=== PATIENT | female | born 1955 | race African-American/Black ===

== ENCOUNTER 2016-07-23 11:44 | Emergency (ER) | payer OTHER ==
[2016-07-23 12:53] VITALS: TEMP 97.9; BMI 29.1
--- NOTE | 2016-07-23 14:06 | EDPRACDOC ---
- General Information Chief Complaint: Flu-Like Symptoms Stated Complaint: FLU LIKE SYMPTOMS Time Seen by Provider: 07/23/16 13:42 Information Source: Patient Mode Of Arrival: Car Home Medications: Home Medications Benzonatate [Tessalon] 200 mg PO TID #20 per 08/08/15 CloNIDine (Antihypertensive) [Catapres] 0.1 mg PO .DAILY W/LUNCH 08/08/15 Garlic 1 each PO DAILY 08/08/15 Metoprolol Tartrate [Lopressor] 25 mg PO BID 08/08/15 Ubidecarenone [Co Q-10] 200 mg PO DAILY 08/08/15 Ibuprofen Tablet [Motrin] 800 mg PO TID #10 tab 08/20/15 Ondansetron [Zofran Odt] 4 mg PO TID PRN #14 tab.rapdis 08/20/15 Oseltamivir Phosphate [Tamiflu] 75 mg PO BID #10 capsule 08/20/15 Acetaminophen with Codeine [TYLENOL WITH CODEINE; [employer] with Codeine] 5 ml PO Q4-6H PRN #120 ml 07/23/16 Cefdinir 300 mg PO BID #20 capsule 07/23/16 Loratadine [Claritin] 10 mg PO DAILY #30 tab 07/23/16 Prednisone [Deltasone, Orasone] 2 tabs PO DAILY #20 tab 07/23/16 Allergies/Adverse Reactions: Allergies Allergy/AdvReac Type Severity Reaction Status Date / Time rosuvastatin calcium Allergy See Verified 08/20/15 18:44 [From [place]] Comments GENERAL ANETHESIA Allergy See Uncoded 08/20/15 18:44 Comments - History of Present Illness Onset: 2 weeks HPI: PT PRESENTS TODAY WITH 2 WEEKS OF URI SYMPTOMS INCLUDING NASAL CONGESTION, COUGH , HOLLINS, FATIGUE. DENIES DIZZINESS, EAR PAIN, CP, SHOB, ABD PAIN, N/V/D. STATES WAS SEEN BY PCP INITIALLY AND GIVEN "SOME KIND OF ANTIBIOTIC" W/OUT RELIEF. NO APPARENT DISTRESS. NO PERTINENT PMH/MEDS. Current Symptoms: Reports: Cough, Fever (LAST NIGHT, SINCE RESOLVED), Headache, Nasal Symptoms, Other (FATIGUE) Shortness of Breath: None Cough: Reports: Productive, Yellow Rhinorrhea: Reports: Green Ear Symptoms: Reports: None Fever Severity/Quality: Reports: subjective Oral Intake: Normal Urinary Output: Normal Relevant History of: None Associated Signs & Symptoms:: Reports: Cough, Fever, Headache, Nasal Symptoms ED Past Medical History - History Reviewed Yes Nurses notes reviewed and agree except as marked - Patient Medical History Cardiac History: Reports: Hypertension - Social Medical History Smoking Status: Never smoker EDM Review of Systems - Review of Systems ROS Negative Except as Marked: Yes All systems reviewed and were negative except as marked Constitutional: Fatigue Eyes: No Symptoms Reported Ears: No Symptoms Reported Throat: No Symptoms Reported Nose: Congestion Respiratory: Cough Cardiovascular: No Symptoms Reported Gastrointestinal: No Symptoms Reported Neurological: No Symptoms Reported Musculoskeletal: No Symptoms Reported Integumentary: No Symptoms Reported - Physical Exam Constitutional: Alert (Awake), No apparent distress Oriented to: Time, Person, Place Last recorded Vital Signs: Last Vital Signs Temp 97.9 F 07/23/16 12:52 Pulse 70 07/23/16 12:52 Resp 18 07/23/16 12:52 BP 167/79 07/23/16 12:52 Pulse Ox 99 07/23/16 12:52 Oxygen Pulse Oxygen Saturation 99 O2 Device Oxygen Flow Rate Fraction of Inspired Oxygen ( FIO2) - HEENT Head: Normal Eye Exam: Normal Oropharynx: Normal Tympanic Membrane: Normal ENT EAC: Normal Nose: Congestion Neck: Normal, Denies Pain, Midline - Respiratory/Cardiovascular Respiratory: Normal - CTA Cardiovascular: Normal - GI Auscultation: Normal Palpation: Normal Tenderness: Non tender - Musculoskeletal Back: Normal Extremities: Normal - Integumentary Skin: Normal Lymphatics: Normal - Neurologic Cerebellar: Normal Mood Description: Normal Thought: Coherent Perception: Normal - Additional Information PT REQUESTS CXR. Decision Time to Discharge: 14:04 - Departure Disposition: Home Condition: Good Final Diagnosis: Acute upper respiratory infection Instructions: Upper Respiratory Infection (ED) Education/Counseling Given To: Patient Education/Counseling Given Regarding: Diagnosis, Treatment, Follow Up Referrals: None,No Provider [Primary Care Provider] - One Week LISA NICHOLSON [NonStaff] - One Week Prescriptions: New Acetaminophen with Codeine [TYLENOL WITH CODEINE; [employer] with Codeine] 5 ml PO Q4-6H PRN #120 ml PRN Reason: Pain Cefdinir 300 mg PO BID #20 capsule Prednisone [Deltasone, Orasone] 2 tabs PO DAILY #20 tab Loratadine [Claritin] 10 mg PO DAILY #30 tab No Action Ubidecarenone [Co Q-10] 200 mg PO DAILY Garlic 1 each PO DAILY CloNIDine (Antihypertensive) [Catapres] 0.1 mg PO .DAILY W/LUNCH Metoprolol Tartrate [Lopressor] 25 mg PO BID Benzonatate [Tessalon] 200 mg PO TID #20 per Ibuprofen Tablet [Motrin] 800 mg PO TID #10 tab Oseltamivir Phosphate [Tamiflu] 75 mg PO BID #10 capsule Ondansetron [Zofran Odt] 4 mg PO TID PRN #14 tab.rapdis PRN Reason: Nausea/Vomiting Additional Instructions: AFRIN FOR ADDITIONAL RELIEF OF NASAL CONGESTION. IF SYMPTOMS PERSIST, FOLLOW UP WITH PCP.
[2016-07-23 14:07] VITALS: BP 177/80; PULSE 72
--- NOTE | 2016-07-23 14:35 | DIRPT ---
CLINICAL DATA: Cough, congestion for 2 weeks EXAM: CHEST 2 VIEW COMPARISON: 06/30/2016 FINDINGS: The heart size and mediastinal contours are within normal limits. Both lungs are clear. The visualized skeletal structures are unremarkable. IMPRESSION: No active cardiopulmonary disease. Electronically Signed By: Elayne Plummer On: 07/23/2016 14:32
== END 2016-07-23 14:47 | disposition home or self-care (01) ==
LOC: EDMC 11:44
DX: J06.9 Acute upper respiratory infection, unspecified (principal)
CPT/HCPCS: 71020; 99282